=== PATIENT | female | born 1955 | race Caucasian/White ===

== ENCOUNTER → 2017-04-17 | Outpatient (CLI) | payer OTHER ==
--- NOTE | 2017-04-17 11:19 | DI ---
MRI LUMBAR SPINE SCAN WITHOUT IV CONTRAST, 04/17/2017 9:53 AM: Clinical History: Low back pain. Previous Exam: None. Technique: Sagittal and axial T2 weighted; sagittal T1 weighted and T2 STIR; and axial PD. The vertebral bodies are of normal height and size. There is moderate disc space narrowing at L1-2 an d L3 forward severe narrowing at L2-3, L4-5, and L5-S1. All lumbar disc spaces show desiccation nicholas e. The cord terminates at T12. The conus medullaris is normal. The T10-11 disc spaces normal. The T11 -12 through L5-S1 disc spaces all have a circumferentially bulging but not herniated discs without ca nal or neural foraminal stenosis. All of the lumbar level show arthritic changes in the apophyseal abdiel ints bilaterally but the L3-4 through L5-S1 apophyseal joints show the most pronounced arthritic ashton ge with hypertrophic changes of the ligamentum flavum. Readin. There are bulging but not herniated discs without canal or neural foraminal stenosis from T11-12 through L5-S1. The disc spaces from L3-4 through L5-S1 show hypertrophic changes of the apophyseal abdiel ints and ligamentum flavum as well. 2. The T10-11 disc space is normal.
== END ==
LOC: MRI 09:47
PROVIDERS: ATTEND Neurological Surgery
DX: M54.5 Low back pain (principal); M47.814 Spondylosis without myelopathy or radiculopathy, thoracic region; M47.817 Spondylosis without myelopathy or radiculopathy, lumbosacral region
CPT/HCPCS: 72148